=== PATIENT | male | born 1985 | race Caucasian/White ===

== ENCOUNTER 2017-12-27 17:09 | Emergency (ER) | payer OTHER ==
[2017-12-27] MEDS ORDERED: Sodium Chloride 0.9% 1000 ML 1,000 ML IV SCH (18:00)
[2017-12-27] MEDS ORDERED: ZOFRAN ODT 4 MG PO ONE (18:00)
[2017-12-27] MEDS ORDERED: TORAdol 30 mg Injection IV ONE (18:00)
[2017-12-27] MEDS ORDERED: ZOFRAN ODT 4 MG ONE (18:13)
[2017-12-27] MEDS ORDERED: TORAdol 30 mg Injection ONE (18:13)
[2017-12-27] MEDS ORDERED: Sodium Chloride 0.9% 1000 ML 1,000 ML ONE (18:13)
--- NOTE | 2017-12-27 18:22 | ERPHSYRPT ---
- History of Present Illness Time Seen by Provider: 12/27/17 17:12 Source: patient, family (mother) Exam Limitations: no limitations Patient Subjective Stated Complaint: STATES BEGAN HAVING LUQ ABD PAIN YESTERDAY. ALSO HAVING SOME NAUSEA. DENIES VOMITING OR DIARRHEA. NORMAL BM TODAY. Triage Nursing Assessment: AMBULATED TO ROOM PER SELF HOLDING LUQ ABD. MOANING AT TIMES. SKIN W/D, COLOR NORMAL. ABD SOFT, TENDER TO TOUCH Physician History: patient developed mid to lower back pain two days ago; no fall or known injury ; hx of old back injury from fall; then pain moved around to front abdomen on left; some N but no emesis; voids ok; bms ok; eating or moving aggravates it; pain now 10/10; no fever; no travel; no exposures Timing/Duration: today (worse), day(s) (2 onset), gradual onset, worse Method of Injury: unknown Quality: aching Back Pain Location: lumbar spine Severity of Pain-Max: severe Severity of Pain-Current: severe Modifying Factors: Improves With: immobilization (helps), movement (aggravates) Associated Symptoms: nausea, other (abdominal pain) Previous symptoms: no prior history Allergies/Adverse Reactions: aspirin Allergy (Verified 12/27/17 17:30) Tightness of Throat codeine Allergy (Verified 12/27/17 17:30) Lightheadedness penicillin Allergy (Verified 12/27/17 17:30) Home Medications: Albuterol Sulfate [Proventil Hfa] 2 puff IH QID 09/13/16 [History] Cetirizine HCl 10 mg PO DAILY 09/13/16 [History] Hydrocodone/APAP 10/325 mg [[place] 10/325 MG Tablet] 1 tab PO Q6H PRN PRN 09/13/16 [History] Hydroxyzine Pamoate [Vistaril] 25 mg PO BID 09/13/16 [History] Methocarbamol 500 mg [Robaxin 500 MG] 500 mg PO HS 09/13/16 [History] Ranitidine HCl [Zantac] 300 mg PO BID 09/13/16 [History] Sertraline HCl 50 mg [Zoloft 50 mg Tablet] 50 mg PO DAILY 09/13/16 [History] Hx Tetanus, Diphtheria Vaccination/Date Given: Yes Hx Influenza Vaccination/Date Given: No Hx Pneumococcal Vaccination/Date Given: No - Review of Systems Constitutional: No Symptoms Eyes: No Symptoms Ears, Nose, & Throat: No Symptoms Respiratory: No Cough, No Dyspnea, No Wheezing Cardiac: No Chest Pain, No Palpitations, No Syncope Abdominal/Gastrointestinal: Abdominal Pain, Nausea, No Vomiting, No Diarrhea, No Constipation Genitourinary Symptoms: No Symptoms Musculoskeletal: Back Pain, No Neck Pain, No Fall, No Injury Skin: No Symptoms Neurological: No Symptoms Psychological: No Symptoms Endocrine: No Symptoms Hematologic/Lymphatic: No Symptoms Immunological/Allergic: No Symptoms - Past Medical History Pertinent Past Medical History: Yes Psycho-Social History: Depression - Past Surgical History Past Surgical History: No - Social History Smoking Status: Current every day smoker How long have you smoked: 2 Exposure to second hand smoke: Yes Alcohol Use: Socially Drug Use: none Patient Lives Alone: No Significant Family History: no pertinent family hx - Nursing Vital Signs Nursing Vital Signs: Initial Vital Signs Temperature 98.9 F 12/27/17 17:28 Pulse Rate 121 H 12/27/17 17:28 Respiratory Rate 16 12/27/17 17:28 Blood Pressure 138/73 12/27/17 17:28 O2 Sat by Pulse Oximetry 99 12/27/17 17:28 Pain Scale Pain Intensity 7 - Physical Exam General Appearance: severe distress (abd andback pain in position), alert Eye Exam: PERRL/EOMI, eyes nml inspection, No photophobia Ears, Nose, Throat Exam: normal ENT inspection, TMs normal, pharynx normal, moist mucous membranes Neck Exam: normal inspection, non-tender, supple, full range of motion, No meningismus, No JVD Respiratory Exam: normal breath sounds, lungs clear, airway intact, No chest tenderness, No respiratory distress, No crackles/rales, No rhonchi, No wheezing Cardiovascular Exam: regular rate/rhythm, normal heart sounds, normal peripheral pulses, tachycardia (120), capillary refill <2 sec, No murmur Gastrointestinal Exam: soft, normal bowel sounds, tenderness (epig > LUQ), No distention, No mass, No guarding, No pulsatile mass, No rebound, No organomegaly Rectal Exam: deferred Back Exam: decreased range of motion, muscle spasm, No normal inspection ( scoliosis), No normal range of motion (pain), No CVA tenderness, No vertebral tenderness (mid to lower mild), No rash, No point tenderness Extremity Exam: normal inspection, normal range of motion, pelvis stable, No parasthesia, No paralysis, No pedal edema Peripheral Pulses: carotid (R): 4+, carotid (L): 4+, femoral (R): 4+, femoral (L ): 4+, dorsalis-pedis (R): 3+, dorsalis-pedis (L): 3+ Neurologic Exam: alert, oriented x 3, cooperative, legal document assistant II-XII nml as tested Skin Exam: normal color, warm, dry, No rash, No petechiae SpO2 Interpretation: normal SpO2: 99 Oxygen Delivery: Room Air - Course Nursing assessment & vital signs reviewed: Yes Ordered Tests: Active Orders 24 hr Category Date Time Status IV Insertion STAT Care 12/27/17 18:00 Active NPO (ED) STAT Care 12/27/17 18:00 Active ABDOMEN AND PELVIS W/0 CONTRAS [CT] Stat Exams 12/27/17 18:01 Taken AMYLASE Stat Lab 12/27/17 18:25 Completed CBC W DIFF Stat Lab 12/27/17 18:25 Completed CMP Stat Lab 12/27/17 18:25 Completed LIPASE Stat Lab 12/27/17 18:25 Completed [place] Screen Stat Lab 12/27/17 Completed UA W/ MICROSCOPIC Stat Lab 12/27/17 18:00 Completed Medication Summary Generic Name Dose Route Start Last Admin Trade Name Freq PRN Reason Stop Dose Admin Sodium Chloride 1,000 mls @ 100 mls/hr 12/27/17 18:00 12/27/17 18:14 Sodium Chloride 0.9% 1000 Ml IV 01/26/18 17:59 100 mls/hr .Q10H TYRONE Administration Discontinued Medications Generic Name Dose Route Start Last Admin Trade Name Freq PRN Reason Stop Dose Admin Ketorolac Tromethamine 30 mg 12/27/17 18:00 12/27/17 18:14 Toradol 30 Mg Injection IV 12/27/17 18:01 30 mg STAT ONE Administration Ketorolac Tromethamine Confirm 12/27/17 18:13 Toradol 30 Mg Injection Administered 12/27/17 18:14 Dose 30 mg .ROUTE .STK-MED ONE Ondansetron HCl 4 mg 12/27/17 18:00 12/27/17 18:15 Zofran Odt 4 Mg PO 12/27/17 18:01 4 mg STAT ONE Administration Ondansetron HCl Confirm 12/27/17 18:13 Zofran Odt 4 Mg Administered 12/27/17 18:14 Dose 4 mg .ROUTE .STK-MED ONE Lab/Rad Data: Laboratory Result Diagrams 12/27/17 18:25 12/27/17 18:25 Laboratory Results 12/27/17 12/27/17 12/27/17 Range/Units Unknown 18:25 18:25 WBC 9.4 (4.0-10.5) K/mm3 RBC 4.74 (4.1-5.6) M/mm3 Hgb 14.2 (12.5-18.0) gm/dl Hct 41.2 L (42-50) % MCV 86.9 (78-100) fl MCH 30.0 (26-32) pg MCHC 34.5 (32-36) g/dl RDW 14.0 (11.5-14.0) % Plt Count 260 (150-450) K/mm3 MPV 8.7 (6-9.5) fl Gran % 81.8 H (36.0-66.0) % Eos # (Auto) 0.11 (0-0.5) Absolute Lymphs (auto) 0.65 L (1.0-4.6) Absolute Monos (auto) 0.92 (0.0-1.3) Lymphocytes % 6.9 L (24.0-44.0) % Monocytes % 9.8 (0.0-12.0) % Eosinophils % 1.2 (0.00-5.0) % Basophils % 0.3 (0.0-0.4) % Absolute Granulocytes 7.69 H (1.4-6.9) Basophils # 0.03 (0-0.4) Sodium 138 (137-145) mmol/L Potassium 3.8 (3.5-5.1) mmol/L Chloride 100 (98-107) mmol/L Carbon Dioxide 28 (22-30) mmol/L Anion Gap 13.3 (5-15) MEQ/L BUN 9 (9-20) mg/dL Creatinine 0.89 (0.66-1.25) mg/dL Estimated GFR > 60.0 ML/MIN Glucose 108 H (74-106) mg/dL Calcium 9.8 (8.4-10.2) mg/dL Total Bilirubin 0.60 (0.2-1.3) mg/dL AST 28 (17-59) U/L ALT 17 (0-50) U/L Alkaline Phosphatase 94 (38-126) U/L Serum Total Protein 7.6 (6.3-8.2) g/dL Albumin 4.3 (3.5-5.0) g/dL Amylase 46 (30-110) U/L Lipase 38 (23-300) U/L Ur Collection Type Urine Color (YELLOW) Urine Appearance (CLEAR) Urine pH (5-6) Ur Specific [place] (1.005-1.025) Urine Protein (Negative) Urine Ketones (NEGATIVE) Urine Blood (0-5) Markie/ul Urine Nitrite (NEGATIVE) Urine Bilirubin (NEGATIVE) Urine Urobilinogen (0-1) mg/dL Ur Leukocyte Esterase (NEGATIVE) Urine Microscopic RBC (0-2) /HPF Ur Epithelial Cells (FEW) /HPF Calcium Oxalate Crystal (NEGATIVE) /HPF Urine Bacteria (NEGATIVE) /HPF Urine Mucus (NEGATIVE) /HPF Urine Culture Reflexed (NO) Urine Glucose (NEGATIVE) mg/dL Monoscreen NEGATIVE (Negative) 12/27/17 Range/Units 18:00 WBC (4.0-10.5) K/mm3 RBC (4.1-5.6) M/mm3 Hgb (12.5-18.0) gm/dl Hct (42-50) % MCV (78-100) fl MCH (26-32) pg MCHC (32-36) g/dl RDW (11.5-14.0) % Plt Count (150-450) K/mm3 MPV (6-9.5) fl Gran % (36.0-66.0) % Eos # (Auto) (0-0.5) Absolute Lymphs (auto) (1.0-4.6) Absolute Monos (auto) (0.0-1.3) Lymphocytes % (24.0-44.0) % Monocytes % (0.0-12.0) % Eosinophils % (0.00-5.0) % Basophils % (0.0-0.4) % Absolute Granulocytes (1.4-6.9) Basophils # (0-0.4) Sodium (137-145) mmol/L Potassium (3.5-5.1) mmol/L Chloride (98-107) mmol/L Carbon Dioxide (22-30) mmol/L Anion Gap (5-15) MEQ/L BUN (9-20) mg/dL Creatinine (0.66-1.25) mg/dL Estimated GFR ML/MIN Glucose (74-106) mg/dL Calcium (8.4-10.2) mg/dL Total Bilirubin (0.2-1.3) mg/dL AST (17-59) U/L ALT (0-50) U/L Alkaline Phosphatase (38-126) U/L Serum Total Protein (6.3-8.2) g/dL Albumin (3.5-5.0) g/dL Amylase (30-110) U/L Lipase (23-300) U/L Ur Collection Type CLEAN CATCH Urine Color YELLOW (YELLOW) Urine Appearance CLEAR (CLEAR) Urine pH 7.0 (5-6) Ur Specific [place] 1.015 (1.005-1.025) Urine Protein NEGATIVE (Negative) Urine Ketones NEGATIVE (NEGATIVE) Urine Blood TRACE NON-HEM (0-5) Markie/ul Urine Nitrite NEGATIVE (NEGATIVE) Urine Bilirubin NEGATIVE (NEGATIVE) Urine Urobilinogen NORMAL (0-1) mg/dL Ur Leukocyte Esterase NEGATIVE (NEGATIVE) Urine Microscopic RBC 0-2 (0-2) /HPF Ur Epithelial Cells RARE (FEW) /HPF Calcium Oxalate Crystal 0-2 (NEGATIVE) /HPF Urine Bacteria RARE (NEGATIVE) /HPF Urine Mucus SLIGHT (NEGATIVE) /HPF Urine Culture Reflexed NO (NO) Urine Glucose NEGATIVE (NEGATIVE) mg/dL Monoscreen (Negative) reviewed - Progress Progress: improved (after meds and iv fluids), re-examined (after lab, meds, IV and ct) Progress Note: 12/27/17 19:15 mother at bedside; feeling better after meds and IV fluids ; CT pending; u/a trace non-heme otherwise neg; cbc ok lyets, librado; lip and renal ok; back and abd pain improved; nausea resolved; CT abd pelvis- enlarged spleen - 15 cm; Spondololisis L5 with Grade 1 spondolethesis; otherwide neg; calc distal right ureter ? stone vs phlebolith 12/27/17 19:20 will check mono spot 12/27/17 19:48 mono test neg; discussed findings with patient and mother; will give additional IV fluids; patient feeling better; instructions given 12/27/17 19:55 discussed with patient ASA allergy - rash- has taken naprosyn without issues Counseled pt/family regarding: lab results, diagnosis, need for follow-up, rad results - Departure Time of Disposition: 19:49 Departure Disposition: Home Clinical Impression: Acute exacerbation of chronic low back pain, Splenomegaly, neutropenic, Hematuria, Spondylolysis of lumbosacral region Condition: Stable Critical Care Time: No Referrals: TOVA BROWNLEE MD [Primary Care Provider] - Instructions: Renal Colic, Low Back Pain in Adults, Acute Abdomen (Belly Pain) Additional Instructions: rest; avoid trauma; follow up lmd recheck for mono;clear fluids 24 hours strain urine Follow-up with family doctor as directed. Call for appointment. Return if any problems. If you smoke please stop. Call or follow up with your family doctor for assistance if you need it to stop. Please wear your seatbelt when driving. Have a nice day. Thank you for allowing us to participate in your care today. :o) Dr Jose C Luz Prescriptions: Ondansetron ODT 4 MG [Zofran Odt 4 mg] 4 mg PO Q6H PRN PRN #10 tab.rapdis PRN Reason: Vomiting Ketorolac Tromethamine [Toradol] 10 mg PO Q8H PRN PRN #10 tablet PRN Reason: Pain
[2017-12-27 18:37] LABS: BASOPHIL % 0.3 % (0.0-0.4); Basophil (Absolute #) 0.03 (0-0.4); Eosinophil % 1.2 % (0.00-5.0); Eosinophil (Absolute #) 0.11 (0-0.5); Granulocyte Absolute (ANC) 7.69 (1.4-6.9); Granulocytes % 81.8 % (36.0-66.0); Hematocrit 41.2 % (42-50); Hemoglobin 14.2 gm/dl (12.5-18.0); Lymphocyte (Absolute #) 0.65 (1.0-4.6); Lymphocytes % 6.9 % (24.0-44.0); Mean Cell Volume 86.9 fl (78-100); Mean Corpuscular Hgb Concent. 34.5 g/dl (32-36); Mean Platelet Volume 8.7 fl (6-9.5); Monocyte (Absolute #) 0.92 (0.0-1.3); Monocytes % 9.8 % (0.0-12.0); Platelet Count 260 K/mm3 (150-450); Red Blood Count 4.74 M/mm3 (4.1-5.6); White Blood Count 9.4 K/mm3 (4.0-10.5)
[2017-12-27 18:58] LABS: ALBUMIN 4.3 g/dL (3.5-5.0); ALKALINE PHOSPHATASE 94 U/L (38-126); AMYLASE 46 U/L (30-110); ANION GAP 13.3 MEQ/L (5-15); BLOOD UREA NITROGEN 9 mg/dL (9-20); CHLORIDE 100 mmol/L (98-107); Calcium 9.8 mg/dL (8.4-10.2); Carbon Dioxide 28 mmol/L (22-30); Creatinine 1 0.89 mg/dL (0.66-1.25); Glucose 108 mg/dL (74-106); LIPASE 38 U/L (23-300); Potassium 3.8 mmol/L (3.5-5.1); SGOT/AST 28 U/L (17-59); SGPT/ALT 17 U/L (0-50); SODIUM 138 mmol/L (137-145); Total Protein 7.6 g/dL (6.3-8.2)
[2017-12-27 19:00] LABS: Appearance CLEAR (CLEAR); Bilirubin NEGATIVE (NEGATIVE); Blood TRACE NON-HEM Ery/ul (0-5); Glucose NEGATIVE (NEGATIVE); Ketones NEGATIVE (NEGATIVE); Leukocyte Esterase NEGATIVE (NEGATIVE); Nitrite NEGATIVE (NEGATIVE); Protein,Urine Dip NEGATIVE (Negative); Specific Gravity 1.015 (1.005-1.025); Urobilinogen NORMAL mg/dL (0-1)
[2017-12-27 19:01] LABS: Bacteria RARE /HPF (NEGATIVE); Calcium Oxalate Crystals 0-2 /HPF (NEGATIVE); Epithelial Cells RARE /HPF (FEW); Mucus SLIGHT /HPF (NEGATIVE); RBC 0-2 /HPF (0-2)
[2017-12-27 20:53] VITALS: BP 129/69; PULSE 105; O2SAT 96
--- NOTE | 2017-12-28 08:34 | XRAY ---
Indication: Abdominal pain and nausea. Multiple contiguous axial images obtained through the abdomen and pelvis without contrast as ordered. Comparison: None Lung bases demonstrates left lower lobe calcified granuloma. No infiltrate or effusion. Heart is not enlarged. Noncontrasted stomach and bowel loops appear nonobstructed. Normal appendix. Mild diffuse scattered colonic fecal debris throughout. Spleen is enlarged measuring 15 cm in greatest axial dimension. Remaining liver, gallbladder, pancreas, spleen, adrenal glands, kidneys, ureters, bladder, and aorta appear unremarkable for noncontrast exam. Osseous structures intact with bilateral L5 spondylolysis and 6-7 mm spondylolisthesis. No ventral or inguinal hernias. Impression: 1. Fecal stasis without obstruction. 2. Splenomegaly. 3. No acute intra-abdominal/pelvic abnormalities on this noncontrast exam. 4. Incidental L5 spondylolysis with grade [address] DI 23.26
== END 2017-12-27 20:51 | disposition home or self-care (01) ==
LOC: ED 17:09
DX: M54.5 Low back pain (principal); R11.0 Nausea; R10.9 Unspecified abdominal pain; Z79.899 Other long term (current) drug therapy; R16.1 Splenomegaly, not elsewhere classified; D70.9 Neutropenia, unspecified; R31.9 Hematuria, unspecified; M43.07 Spondylolysis, lumbosacral region
CPT/HCPCS: 36000; 36415; 74176; 80053; 81000; 82150; 83690; 85025; 86308; 96360; 96374; 99284; J1885; Q0162

== ENCOUNTER 2018-05-15 17:48 | Emergency (ER) | payer OTHER ==
[2018-05-15] MEDS ORDERED: TORAdol 30 mg Injection IV ONE (18:11)
[2018-05-15] MEDS ORDERED: Zofran 4 MG/2 ML VIAL IV ONE (18:11)
[2018-05-15] MEDS ORDERED: Sodium Chloride 0.9% 1000 ML 1,000 ML IV STA (18:11)
[2018-05-15] MEDS ORDERED: TORAdol 30 mg Injection ONE (18:13)
[2018-05-15] MEDS ORDERED: Zofran 4 MG/2 ML VIAL ONE (18:13)
[2018-05-15] MEDS ORDERED: Sodium Chloride 0.9% 1000 ML 1,000 ML ONE (18:13)
--- NOTE | 2018-05-15 18:16 | ERPHSYRPT ---
- History of Present Illness Historian: patient Exam Limitations: no limitations Patient Subjective Stated Complaint: PT STATES HE HAS HAD PROBLEMS WITH HIS SPLEEN IN PAST, STARTED VOMITING, PAIN Triage Nursing Assessment: PT ALERT AND ORIENTED X 3, LUNGS CLEAR, LEFT UPPER QUAD PAIN 9/10, ACTIVE BOWEL SOUNDS, TENDER WITH PALPATION. Timing/Duration: today (1:00 THIS AFTERNOON) Activities at Onset: none Quality: aching Abdominal Pain Onset Location: LUQ Pain Radiation: no radiation Severity of Pain-Max: moderate Severity of Pain-Current: moderate Modifying Factors: Improves With: nothing Associated Symptoms: nausea, No back, No chest pain, No diaphoresis, No diarrhea , No fever/chills, No fatigue, No headache, No heartburn, No loss of appetite, No neck pain, No rash, No shortness of breath, No syncope, No testicular pain, No vomiting, No weakness Previous symptoms: same symptoms as today (PATIENT WITH SIMILAR SYMPTOMS LAST FALL) Hx Tetanus, Diphtheria Vaccination/Date Given: Yes (2017) Hx Influenza Vaccination/Date Given: No Hx Pneumococcal Vaccination/Date Given: No <MODESTA VIRGEN - Last Filed: 05/15/18 19:10> <RIZWAN JAMES - Last Filed: 05/15/18 21:27> - History of Present Illness Time Seen by Provider: 05/15/18 18:06 Physician History: 32-year-old white male with history of an enlarged spleen, arrives with complaint of pain in the left upper quadrant associated with vomiting symptoms since 1:00. He has not had any fevers no diarrhea no urinary symptoms. Past medical history includes enlarged spleen, "muscle spasms around his heart" scoliosis, depression, Past surgical history is negative Social history history of tobacco use (MODESTA VIRGEN) Allergies/Adverse Reactions: aspirin Allergy (Verified 05/15/18 18:05) Tightness of Throat codeine Allergy (Verified 05/15/18 18:05) Lightheadedness penicillin Allergy (Verified 05/15/18 18:05) Home Medications: No Reportable Medications [No Reported Medications] 05/15/18 [History] - Review of Systems Constitutional: No Fever, No Chills Eyes: No Symptoms Ears, Nose, & Throat: No Symptoms Respiratory: No Cough, No Dyspnea Cardiac: No Chest Pain, No Edema, No Syncope Abdominal/Gastrointestinal: Abdominal Pain (left upper quadrant abdominal pain) , Nausea, Vomiting, No Diarrhea, No Constipation, No Hematemesis, No Hematochezia, No Melena, No Dysphagia, No Appetite Changes Genitourinary Symptoms: No Dysuria Musculoskeletal: No Back Pain, No Neck Pain Skin: No Rash Neurological: No Dizziness, No Focal Weakness, No Sensory Changes Psychological: No Symptoms Endocrine: No Symptoms All Other Systems: Reviewed and Negative <MODESTA VIRGEN - Last Filed: 05/15/18 19:10> - Past Medical History Pertinent Past Medical History: Yes Neurological History: No Pertinent History ENT History: No Pertinent History Cardiac History: Other Respiratory History: No Pertinent History Endocrine Medical History: No Pertinent History Musculoskeletal History: Other GI Medical History: Other History: No Pertinent History Psycho-Social History: Depression Male Reproductive Disorders: No Pertinent History Other Medical History: ENLARGED SPLEEN, MUSCLE SPASMS AROUND HEART, SCOLL - Past Surgical History Past Surgical History: No - Social History Smoking Status: Current every day smoker How long have you smoked: 2 Exposure to second hand smoke: Yes Alcohol Use: Socially Drug Use: none Patient Lives Alone: No Significant Family History: no pertinent family hx <MODESTA VIRGEN - Last Filed: 05/15/18 19:10> - Physical Exam General Appearance: no apparent distress, alert Eye Exam: PERRL/EOMI, eyes nml inspection Ears, Nose, Throat Exam: normal ENT inspection (Dr. Real), pharynx normal, moist mucous membranes Neck Exam: normal inspection, non-tender, supple, full range of motion Respiratory Exam: normal breath sounds, lungs clear, No respiratory distress Cardiovascular Exam: regular rate/rhythm (it is felt the), normal heart sounds Gastrointestinal/Abdomen Exam: soft, normal bowel sounds, tenderness (left upper quadrant abdominal pain), No mass, No ecchymosis Back Exam: normal inspection, normal range of motion, No CVA tenderness, No vertebral tenderness Extremity Exam: normal inspection, normal range of motion, pelvis stable Neurologic Exam: alert, oriented x 3, cooperative, educational therapist II-XII nml as tested, normal mood/affect, nml cerebellar function, sensation nml, No motor deficits Skin Exam: normal color, warm, dry SpO2 Interpretation: normal (98%) SpO2: 98 <MODESTA VIRGEN - Feliz Filed: 05/15/18 19:10> - Nursing Vital Signs Nursing Vital Signs: Initial Vital Signs Temperature 97.9 F 05/15/18 17:53 Pulse Rate 98 H 05/15/18 17:53 Respiratory Rate 18 05/15/18 17:53 Blood Pressure 160/92 05/15/18 17:53 O2 Sat by Pulse Oximetry 98 05/15/18 17:53 Pain Scale Pain Intensity 3 - Course Nursing assessment & vital signs reviewed: Yes <RIZWAN JAMES - Last Filed: 05/15/18 21:27> Ordered Tests: Active Orders 24 hr Category Date Time Status IV Insertion STAT Care 05/15/18 18:01 Active ABDOMEN AND PELVIS W CONTRAST [CT] Stat Exams 05/15/18 18:25 Taken AMYLASE Stat Lab 05/15/18 18:10 Completed CBC W DIFF Stat Lab 05/15/18 18:10 Completed CMP Stat Lab 05/15/18 18:10 Completed LIPASE Stat Lab 05/15/18 18:10 Completed Manual Differential [place] Stat Lab 05/15/18 18:10 Completed UA W/RFX UR CULTURE Stat Lab 05/15/18 18:15 Completed Medication Summary Discontinued Medications Generic Name Dose Route Start Last Admin Trade Name Freq PRN Reason Stop Dose Admin Sodium Chloride 1,000 mls @ 999 mls/hr 05/15/18 18:11 05/15/18 19:18 Sodium Chloride 0.9% 1000 Ml IV 05/15/18 19:11 Infused .Q1H1M STA Infusion Sodium Chloride Confirm 05/15/18 18:13 Sodium Chloride 0.9% 1000 Ml Administered 05/15/18 18:14 Dose 1,000 mls @ ud .ROUTE .STK-MED ONE Ketorolac Tromethamine 30 mg 05/15/18 18:11 05/15/18 18:18 Toradol 30 Mg Injection IV 05/15/18 18:12 30 mg STAT ONE Administration Ketorolac Tromethamine Confirm 05/15/18 18:13 Toradol 30 Mg Injection Administered 05/15/18 18:14 Dose 30 mg .ROUTE .STK-MED ONE Ondansetron HCl 4 mg 05/15/18 18:11 05/15/18 18:19 Zofran 4 Mg/2 Ml Vial IV 05/15/18 18:12 4 mg STAT ONE Administration Ondansetron HCl Confirm 05/15/18 18:13 Zofran 4 Mg/2 Ml Vial Administered 05/15/18 18:14 Dose 4 mg .ROUTE .STK-MED ONE Lab/Rad Data: Laboratory Result Diagrams 05/15/18 18:10 05/15/18 18:10 Laboratory Results 05/15/18 05/15/18 05/15/18 Range/Units 18:15 18:10 18:10 WBC 13.5 H (4.0-10.5) K/mm3 RBC 5.01 (4.1-5.6) M/mm3 Hgb 15.2 (12.5-18.0) gm/dl Hct 44.4 (42-50) % MCV 88.6 (78-100) fl MCH 30.3 (26-32) pg MCHC 34.2 (32-36) g/dl RDW 13.4 (11.5-14.0) % Plt Count 326 (150-450) K/mm3 MPV 10.0 H (6-9.5) fl Sodium 143 (137-145) mmol/L Potassium 4.0 (3.5-5.1) mmol/L Chloride 103 (98-107) mmol/L Carbon Dioxide 29 (22-30) mmol/L Anion Gap 15.2 H (5-15) MEQ/L BUN 8 L (9-20) mg/dL Creatinine 0.90 (0.66-1.25) mg/dL Estimated GFR > 60.0 ML/MIN Glucose 98 (74-106) mg/dL Calcium 10.2 (8.4-10.2) mg/dL Total Bilirubin 0.50 (0.2-1.3) mg/dL AST 31 (17-59) U/L ALT 22 (0-50) U/L Alkaline Phosphatase 100 (38-126) U/L Serum Total Protein 9.2 H (6.3-8.2) g/dL Albumin 5.1 H (3.5-5.0) g/dL Amylase 75 (30-110) U/L Lipase 92 (23-300) U/L Urine Color COLORLESS (YELLOW) Urine Appearance CLEAR (CLEAR) Urine pH 8.0 (5-6) Ur Specific [place] 1.002 (1.005-1.025) Urine Protein NEGATIVE (Negative) Urine Ketones NEGATIVE (NEGATIVE) Urine Blood SMALL (0-5) Markie/ul Urine Nitrite NEGATIVE (NEGATIVE) Urine Bilirubin NEGATIVE (NEGATIVE) Urine Urobilinogen NEGATIVE (0-1) mg/dL Ur Leukocyte Esterase NEGATIVE (NEGATIVE) Urine WBC (Auto) NONE (0-5) /HPF Urine RBC (Auto) NONE (0-2) /HPF Urine Culture Reflexed NO (NO) Urine Glucose NEGATIVE (NEGATIVE) mg/dL - Progress Progress: improved <MODESTA VIRGEN - Last Filed: 05/15/18 19:10> - Progress Counseled pt/family regarding: lab results, diagnosis, need for follow-up, rad results <RIZWAN JAMES - Last Filed: 05/15/18 21:27> - Progress Progress Note: 05/15/18 19:09 Patient receiving IV normal saline and Toradol. CT of the abdomen and pelvis are pending. I've discussed the patient's case with Dr. James. He will assume care of this patient secondary to shift change. (MODESTA VIRGEN) 05/15/18 21:25 ct scan abd/pelvis-no new or acute findings (RIZWAN JAMES) <MODESTA VIRGEN - Last Filed: 05/15/18 19:10> - Departure Time of Disposition: 21:26 Departure Disposition: Home Critical Care Time: No <RIZWAN JAMES - Last Filed: 05/15/18 21:27> - Departure Clinical Impression: Abdominal pain Condition: Stable Referrals: TOVA BROWNLEE MD [Primary Care Provider] - Additional Instructions: drink plenty of fluids. follow up with primary doctor for further management.
[2018-05-15 18:17] LABS: Hematocrit 44.4 % (42-50); Hemoglobin 15.2 gm/dl (12.5-18.0); Mean Cell Volume 88.6 fl (78-100); Mean Corpuscular Hemoglobin 30.3 pg (26-32); Mean Corpuscular Hgb Concent. 34.2 g/dl (32-36); Platelet Count 326 K/mm3 (150-450); Red Blood Count 5.01 M/mm3 (4.1-5.6); Red Cell Distribution Width 13.4 % (11.5-14.0); White Blood Count 13.5 K/mm3 (4.0-10.5)
[2018-05-15 18:22] LABS: ALBUMIN 5.1 g/dL (3.5-5.0); ALKALINE PHOSPHATASE 100 U/L (38-126); AMYLASE 75 U/L (30-110); ANION GAP 15.2 MEQ/L (5-15); BLOOD UREA NITROGEN 8 mg/dL (9-20); CHLORIDE 103 mmol/L (98-107); Calcium 10.2 mg/dL (8.4-10.2); Carbon Dioxide 29 mmol/L (22-30); Glucose 98 mg/dL (74-106); LIPASE 92 U/L (23-300); SGOT/AST 31 U/L (17-59); SGPT/ALT 22 U/L (0-50); SODIUM 143 mmol/L (137-145); Total Protein 9.2 g/dL (6.3-8.2)
[2018-05-15 18:35] LABS: Appearance CLEAR (CLEAR); Bilirubin NEGATIVE (NEGATIVE); Blood SMALL Ery/ul (0-5); Glucose NEGATIVE (NEGATIVE); Ketones NEGATIVE (NEGATIVE); Leukocyte Esterase NEGATIVE (NEGATIVE); Nitrite NEGATIVE (NEGATIVE); Protein,Urine Dip NEGATIVE (Negative); Specific Gravity 1.002 (1.005-1.025); Urobilinogen NEGATIVE mg/dL (0-1)
[2018-05-15 21:08] VITALS: PULSE 64
[2018-05-15 21:33] VITALS: BP 132/75; O2SAT 98
[2018-05-15 21:57] LABS: Eosinophil 2 % (0.00-3.0); Lymphocytes 21 % (24-44); Monocyte 6 % (0.0-12.0); Neutrophils 71 % (36.-66.); Platelet Estimate NORMAL (NORMAL); Total Cells Counted 100
--- NOTE | 2018-05-16 08:42 | XRAY ---
Indication: Left abdomen pain. Multiple contiguous axial images obtained through the abdomen and pelvis using 80 cc Isovue 370 contrast only. Comparison: December 27, 2017. Lung bases essentially clear. Heart is not enlarged. Noncontrasted stomach and bowel loops appear nonobstructed. Normal appendix. No free fluid/air. Spleen remains enlarged measuring 14 cm in greatest axial dimension. Remaining liver, gallbladder, pancreas, spleen, adrenal glands, kidneys, ureters, and bladder appear unremarkable. Aorta is normal in course and caliber. No AAA or a pathologic retroperitoneal lymphadenopathy. Osseous structures demonstrate stable bilateral L5 spondylolysis with grade 1 spondylolisthesis. Impression: 1. Again incidental splenomegaly and L5 spondylolysis with grade [address] abdomen/pelvis with contrast exam is negative. CT DI 22.37
== END 2018-05-15 21:37 | disposition home or self-care (01) ==
LOC: ED 17:48
DX: R10.12 Left upper quadrant pain (principal); R16.1 Splenomegaly, not elsewhere classified; M62.838 Other muscle spasm; F32.9 Major depressive disorder, single episode, unspecified; M41.9 Scoliosis, unspecified
CPT/HCPCS: 36000; 36415; 74177; 80053; 81001; 82150; 83690; 85025; 96360; 96374; 96375; 99284; J1885; J2405